=== PATIENT | female | born 2000 | race Caucasian/White ===

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

== ENCOUNTER 2019-05-01 13:11 | Emergency (ER) | payer BC ==
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
[2019-05-01 14:18] LABS: CHLORIDE,CL 104 mmol/L (98-107); SODIUM,NA 138 mmol/L (136-145)
--- NOTE | 2019-05-01 14:49 | US ---
EXAMINATION: Transvaginal obstetric ultrasound HISTORY: Pain COMPARISON: CT 01/18/2017 TECHNIQUE: Grayscale, color Doppler, and spectral Doppler imaging obtained. FINDINGS: There is a single live intrauterine gestational sac noted. A tiny yolk sac without a definitive pole at this time. Trace fluid in the lower uterine segment, possibly a minimal subchorionic hemorrhage. The mean sac diameter gives an estimated gestational age at 5 weeks and 5 days. Both the left and right ovaries otherwise appear normal. No significant free pelvic fluid. IMPRESSION: 1. Early intrauterine . Estimated gestational age is 5 weeks and 5 days with an estimated date of delivery at 12/27/2019. 2. Only a yolk sac is demonstrated and a definitive pole is not yet noted. 3. Possible minimal subchorionic hemorrhage.
[2019-05-01 15:36] VITALS: BP 111/68
== END 2019-05-01 15:37 | disposition home or self-care (01) ==
LOC: MW.ED 13:11
DX: O20.0 Threatened abortion (principal); Z3A.01 Less than 8 weeks gestation of pregnancy
CPT/HCPCS: 36415; 76801; 76801-26; 80053; 84702; 85025; 86900; 86901; 99284-25

== ENCOUNTER 2019-06-06 14:25 | Emergency (ER) | payer BC ==
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
[2019-06-06] MEDS ORDERED: Diphtheria,Pertussis(Acell),Tetanus Vaccine 0.5 ML Syringe IM ONE (14:41)
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
[2019-06-06 16:30] VITALS: BP 113/66; PULSE 81
== END 2019-06-06 16:28 | disposition home or self-care (01) ==
LOC: MW.ED 14:25
DX: S06.9X9A Unspecified intracranial injury with loss of consciousness of unspecified duration, initial encounter (principal); S16.1XXA Strain of muscle, fascia and tendon at neck level, initial encounter; S50.812A Abrasion of left forearm, initial encounter; F41.9 Anxiety disorder, unspecified; F32.9 Major depressive disorder, single episode, unspecified; Z79.899 Other long term (current) drug therapy; Z23 Encounter for immunization; V89.2XXA Person injured in unspecified motor-vehicle accident, traffic, initial encounter
CPT/HCPCS: 70450; 70450-26; 72125; 72125-26; 90471; 90715; 99284; 99284-25

== ENCOUNTER 2023-05-07 06:10 | Inpatient (IN) | payer BC ==
[2023-05-07] MEDS ORDERED: Tranexamic Acid 1,000 MG in Sodium Chloride 0.9% 100 ML IV PRN ×2 (08:46→17:51)
[2023-05-07] MEDS ORDERED: Methylergonovine 0.2 MG/1 ML Amp IM PRN ×2 (08:46→17:51)
[2023-05-07] MEDS ORDERED: Sodium Chloride 0.9% 2.5 ML Syringe FLUSH PRN (08:46)
[2023-05-07] MEDS ORDERED: Butorphanol 1 MG/ML SDV IVPUSH PRN (08:46)
[2023-05-07] MEDS ORDERED: Carboprost Tromethamine 250 MCG/1 mL Vial IM PRN (08:46)
[2023-05-07] MEDS ORDERED: Lidocaine 1% 50 ML MDV INJECT PRN (08:46)
[2023-05-07] MEDS ORDERED: Misoprostol 200 MCG Tab PO PRN (08:46)
[2023-05-07] MEDS ORDERED: Water For Irrigation,Sterile 1,000 ML Container IRR PRN (08:46)
[2023-05-07] MEDS ORDERED: Sodium Chloride 0.9% 10 ML Syringe FLUSH PRN (08:46)
[2023-05-07] MEDS ORDERED: Sodium Chloride 0.9% 20 ML SDV IV PRN (08:46)
[2023-05-07] MEDS ORDERED: Lactated Ringers 1,000 ML IV SCH (09:00)
[2023-05-07] MEDS ORDERED: Oxytocin/0.9 % Sodium Chloride 30 UNIT/500 ML BAG IV SCH ×2 (09:00→21:54)
[2023-05-07 09:27] LABS: HEMATOCRIT 36.9 % (36.0-46.0); MEAN CORPUSCULAR HEMOGLOBIN 31.9 pg (27.0-32.0); MEAN CORPUSCULAR HGB CONC 35.2 g/dL (31.0-37.0); MEAN CORPUSCULAR VOLUME 90.4 fL (80.0-98.0); MEAN PLATELET VOLUME 11.4 fL (7.40-12.00); RED BLOOD CELL COUNT 4.08 M/uL (4.30-5.90); WHITE BLOOD CELL COUNT,WBC 15.14 K/uL (4.0-11.0)
[2023-05-07] MEDS ORDERED: ePHEDrine 50 MG/ML SDV IVPUSH PRN ×2 (09:39)
[2023-05-07] MEDS ORDERED: Phenylephrine HCl 0.5 MG/5 ML AMP IVPUSH PRN (09:39)
[2023-05-07 09:44] LABS: AMPHETAMINES SCREEN, URINE NEGATIVE (CUTOFF=500); BARBITURATE SCREEN,URINE NEGATIVE (CUTOFF=200); BENZODIAZEPINES SCREEN,URINE NEGATIVE (CUTOFF=150); BUPRENORPHINE SCREEN,URINE NEGATIVE (CUTOFF=10); METHADONE SCREEN, URINE NEGATIVE (CUTOFF=200); METHAMPHETAMINES SCREEN, URINE NEGATIVE (CUTOFF=500); OXYCODONE SCREEN,URINE NEGATIVE (CUT0FF=100); PCP SCREEN,URINE NEGATIVE (CUTOFF=25); PROPOXYPHENE SCREEN,URINE NEGATIVE (CUTOFF=300); THC SCREEN,URINE 20 NG/ML NEGATIVE (CUTOFF=50)
[2023-05-07] MEDS ORDERED: Ropivacaine HCl/PF 400 MG in Premix Bag 1 BAG EPIDUR SCH (09:45)
[2023-05-07] MEDS ORDERED: Nalbuphine HCl 10 MG/ 1ML Amp IVPUSH PRN (14:43)
[2023-05-07] MEDS ORDERED: Nalbuphine HCl 10 MG/ 1ML Amp ONE (14:47)
[2023-05-07] MEDS ORDERED: Docusate Sodium 100 MG Cap PO PRN (17:51)
[2023-05-07] MEDS ORDERED: Ibuprofen 400 MG Tab PO PRN (17:51)
[2023-05-07] MEDS ORDERED: Acetaminophen 500 MG Tab PO PRN (17:51)
[2023-05-07] MEDS ORDERED: Bisacodyl 10 MG Supp RECTAL PRN (17:51)
[2023-05-07] MEDS ORDERED: Witch Hazel Medicated Pads 40/Jar TOP PRN (17:51)
[2023-05-07] MEDS ORDERED: Lanolin 100% Cream 7 GM Tube TOP PRN (17:51)
[2023-05-07] MEDS ORDERED: Benzocaine/Menthol 20%-0.5% Spray 78 GM Cannister TOP PRN (17:51)
[2023-05-07 17:56] LABS: PH,UMBILICAL ARTERIAL 7.189 (7.18-7.38); PH,UMBILICAL VENOUS 7.299 (7.25-7.45)
[2023-05-07] MEDS: Ibuprofen 800 MG Tab PO PRN (18:24)
[2023-05-07] MEDS: Acetaminophen 500 MG Tab PO PRN ×2 (18:24→22:47)
[2023-05-07] MEDS ORDERED: Oxytocin/0.9 % Sodium Chloride 30 UNIT/500 ML BAG ONE (21:56)
[2023-05-07 22:29] LABS: HEMATOCRIT 28.7 % (36.0-46.0); HEMOGLOBIN 10.1 g/dL (12.0-16.0); MEAN CORPUSCULAR HEMOGLOBIN 31.9 pg (27.0-32.0); MEAN CORPUSCULAR HGB CONC 35.2 g/dL (31.0-37.0); MEAN CORPUSCULAR VOLUME 90.5 fL (80.0-98.0); MEAN PLATELET VOLUME 10.8 fL (7.40-12.00); RED BLOOD CELL COUNT 3.17 M/uL (4.30-5.90); WHITE BLOOD CELL COUNT,WBC 20.3 K/uL (4.0-11.0)
[2023-05-07 22:49] LABS: INR 0.95 (0.86-1.11); PTT,PARTIAL THROMBOPLSTIN TIME 24.8 SEC (23.9-30.7)
[2023-05-07 22:50] LABS: A/G RATIO 0.6 (0.9-1.6); ALBUMIN 2.1 g/dL (3.4-5.0); BILIRUBIN TOTAL 0.3 mg/dL (0.2-1.0); CALCIUM 7.6 mg/dL (8.5-10.1); CARBON DIOXIDE,CO2 20.5 mmol/L (21.0-32.0); EST CRCL DRUG DOSING (CG) 90.66 mL/min; POTASSIUM,K 3.8 mmol/L (3.5-5.1); PROTEIN TOTAL,TP 5.4 g/dL (6.4-8.2)
[2023-05-08] MEDS: Ibuprofen 800 MG Tab PO PRN (01:14)
[2023-05-08 06:40] LABS: HEMATOCRIT 24.8 % (36.0-46.0); HEMOGLOBIN 8.6 g/dL (12.0-16.0)
[2023-05-08] MEDS: Acetaminophen 500 MG Tab PO PRN (11:05)
[2023-05-09] MEDS: Acetaminophen 500 MG Tab PO PRN (08:00)
[2023-05-09 08:09] VITALS: BP 135/82; PULSE 83
== END 2023-05-09 10:30 | disposition home or self-care (01) | DRG 560 ==
LOC: MW.OBCHECK 06:10 → MW.OB 06:11 → MW.OBCHECK 13:15 → OBSVTOIN 16:24 → MW.OB 21:30
PROVIDERS: ADMIT Obstetrics & Gynecology; ATTEND Obstetrics & Gynecology
PROC: 10E0XZZ Delivery of Products of Conception, External Approach (ICD-10-PCS; principal; 2023-05-07)
DX: O80 Encounter for full-term uncomplicated delivery (principal); Z3A.37 37 weeks gestation of pregnancy; Z37.0 Single live birth
CPT/HCPCS: 36415; 59025; 59409; 80053; 80305-QW; 82803; 84112; 85014; 85018; 85027; 85384; 85610; 85730; 86592; A9270-GY; J2300; J2590; J3490; J7120